=== PATIENT | female | born 1945 | race Caucasian/White ===

== ENCOUNTER → 2020-07-30 | Outpatient (CLI) | payer MEDICARE | LOC: KOH-I 14:10 | DX: M17.11 Unilateral primary osteoarthritis, right knee (principal) | CPT/HCPCS: 73562 ==

== ENCOUNTER → 2020-09-03 | Outpatient (CLI) | payer MEDICARE | LOC: KOH-I 14:34 | DX: M54.5 Low back pain (principal); M51.36 Other intervertebral disc degeneration, lumbar region; M54.2 Cervicalgia; R29.898 Other symptoms and signs involving the musculoskeletal system; M17.11 Unilateral primary osteoarthritis, right knee | CPT/HCPCS: 72100 ==

== ENCOUNTER → 2020-10-17 | Outpatient (CLI) | payer MEDICARE | LOC: KOH-I 15:36 | DX: M54.16 Radiculopathy, lumbar region (principal) | CPT/HCPCS: 72148 ==